=== PATIENT | female | born 1945 | race Caucasian/White ===

== ENCOUNTER 2021-10-28 10:06 | Outpatient (CLI) | payer MEDICARE, SELFPAY | END 2021-10-28 10:07 | disposition home or self-care (01) | LOC: ANHAUDASC 10:11 | DX: Z01.10 Encounter for examination of ears and hearing without abnormal findings (principal) | CPT/HCPCS: 99199 ==

== ENCOUNTER 2021-12-02 10:00 | Outpatient (RCR) | payer SELFPAY | END 2021-12-02 10:43 | disposition other institution (70) | LOC: ANHAUDASC 10:00 | DX: Z46.1 Encounter for fitting and adjustment of hearing aid (principal) | CPT/HCPCS: V5160; V5261 ==